=== PATIENT | female | born 1945 | race American Indian/Alaskan Native ===

== ENCOUNTER 2018-11-22 01:08 | Emergency (ER) | payer MEDICARE, OTHER ==
--- NOTE | 2018-11-22 01:10 | EDM.PDOC ---
ED HPI GENERAL MEDICAL PROBLEM - General Stated Complaint: AMBULANCE Time Seen by Provider: 11/22/18 01:08 Source of Information: Reports: Patient History Limitations: Reports: No Limitations - History of Present Illness INITIAL COMMENTS - FREE TEXT/NARRATIVE: states was going from bathroom to kitchen and tripped over a step hit back of head was dazed with ?LOC. denies N/V/viz problem. EMS found pt sitting in chair. Posterior Head Pain Score (Numeric/FACES): 5 - Related Data Allergies Allergy/AdvReac Type Severity Reaction Status Date / Time amitriptyline Allergy Blisters Verified 11/22/18 01:16 gabapentin Allergy Nausea Verified 11/22/18 01:16 NSAIDS (Non-Steroidal Allergy Rash Verified 11/22/18 01:16 Anti-Inflamma tramadol Allergy Swollen Verified 11/22/18 01:16 Tongue trazodone Allergy Swollen Verified 11/22/18 01:16 Tongue Home Meds: Home Meds ALPRAZolam [Alprazolam] 1 tab PO TID 12/11/14 [History] Acetaminophen [Tylenol] 650 mg PO Q4H PRN 12/11/14 [History] Escitalopram [Lexapro] 20 mg PO DAILY 12/11/14 [History] Insulin Detemir [Levemir] 20 units SQ BID 12/11/14 [History] Ipratropium/Albuterol Sulfate [Iprat-Albut 0.5-3(2.5) MG/3 ML] 1 vial INH Q4H [History] Lisinopril 1 tab PO DAILY 12/11/14 [History] Mometasone/Formoterol [Dulera 200 MCG/5 MCG] 2 puff INH BID 12/11/14 [History] Simvastatin [Zocor] 40 mg PO BEDTIME 12/11/14 [History] Tiotropium [place] [Spiriva Respimat] 1 cap INH DAILY 12/11/14 [History] metFORMIN HCl [Metformin HCl] 1 tab PO BID 12/11/14 [History] oxyCODONE HCl/Acetaminophen [Percocet 7.5-325 MG] 1 tab PO Q4H 12/11/14 [History ] Past Medical History Other Respiratory History: uses 2 liters of oxygen at home at all times, schuduled Duo-nebs Other Genitourinary History: was in renal failure in December of 2013, had dialysis times 3" and it turned me around" Other Neuro History: 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 ED EXAM, HEAD INJURY - Physical Exam Exam: See Below Exam Limited By: No Limitations General Appearance: Alert, WD/WN, Mild Distress, Other (headache) Head: Scalp Lacerations. No: Valles's Sign, Raccoon Eyes Nexus Criteria: No: Posterior, Midline Cervical Tenderness, Evidence of Intoxication, Altered Level of Consciousness, Focal Neurological Deficit, Painful Distraction Injuries Eyes: Bilateral Eye: PERRL (pupils ess ER @ 4mm) Ears: Hearing Grossly Normal Throat/Mouth: Normal Voice, No Airway Compromise Neck: Non-Tender, Full Range of Motion Respiratory: No Respiratory Distress Cardiovascular: Regular Rate, Rhythm GI/Abdominal Exam: Soft, Non-Tender Neurologic: No Motor/Sensory Deficits, Alert, Normal Mood/Affect, Oriented x 3 Skin: Normal Color, Warm/Dry - Daren Coma Score Best Eye Response ([place]): (4) Open Spontaneously Best Verbal Response (Daren): (5) Oriented Best Motor Response ([place]): (6) Obeys Commands Daren Total: 15 ED LACERATION/WOUND & SULLY PROC - Laceration/Wound Repair Occipital Lac/wound length in cm: 6 (occiput) Appearance: Subcutaneous, Irregular, Clean Anesthetic Type: Local Local Anesthesia - Lidocaine (Xylocaine): 1% with EPI Local Anesthetic Volume: 5cc Skin Prep: Chlorhexidine ([place]) Saline irrigation (cc's): 20 Exploration/Debridement/Repair: Wound Explored, In a Bloodless Field, No Foreign Material Found Closed with: Sutures Suture Size: 3-0 Suture Type: Nylon, Interrupted Sterile Dressing Applied: None Tetanus Status Addressed: Yes Complications: No Course - Vital Signs Last Recorded V/S: Last Vital Signs Temp 36.6 C 11/22/18 01:12 Pulse 93 11/22/18 01:12 Resp 20 11/22/18 01:12 BP 133/78 11/22/18 01:12 Pulse Ox 93 L 11/22/18 01:12 - Orders/Labs/Meds Orders: Active Orders 24 hr Category Date Time Status Cervical Spine wo Cont [CT] Urgent Exams 11/22/18 01:33 Ordered Head wo Cont [CT] Urgent Exams 11/22/18 01:33 Ordered Meds: Medications Discontinued Medications Generic Name Dose Route Start Last Admin Trade Name Mariana PRN Reason Stop Dose Admin Acetaminophen 500 mg 11/22/18 01:37 11/22/18 01:42 Tylenol Extra Strength PO 11/22/18 01:38 500 mg ONETIME ONE Administration Lidocaine/Epinephrine 20 ml 11/22/18 01:07 11/22/18 01:26 Xylocaine 1% With Epinephrine 1:100,000 INJECT 11/22/18 01:08 20 ml ONETIME ONE Administration - Re-Assessments/Exams Free Text/Narrative Re-Assessment/Exam: 11/22/18 02:26 results discussed with pt who is feeling fine Departure - Departure Time of Disposition: 02:27 Disposition: Home, Self-Care 01 Condition: Good Clinical Impression: Occipital scalp laceration Qualifiers: Encounter type: initial encounter Qualified Code(s): S01.01XA - Laceration without foreign body of scalp, initial encounter Concussion Qualifiers: Encounter type: initial encounter Loss of consciousness presence/duration: without LOC Qualified Code(s): S06.0X0A - Concussion without loss of consciousness, initial encounter - Discharge Information Instructions: Laceration Care, Adult, [id number] Forms: ED Department Discharge Additional Instructions: 1) keep wound clean and dry 2) may shower but avoid combing 3) suture removal 10 days 4) take tyelnol as needed 5) recheck as needed - My Orders Last 24 Hours: My Active Orders 11/22/18 01:33 Cervical Spine wo Cont [CT] Urgent Head wo Cont [CT] Urgent - Assessment/Plan Last 24 Hours: My Active Orders 11/22/18 01:33 Cervical Spine wo Cont [CT] Urgent Head wo Cont [CT] Urgent
[2018-11-22 01:16] VITALS: BP 133/78
[2018-11-22] MEDS: Lidocaine 1% with EPINEPHrine 1:100,000 20 ML MDV INJECT ONE (01:26)
[2018-11-22] MEDS: Acetaminophen 500 MG Tab PO ONE (01:42)
== END 2018-11-22 02:38 | disposition home or self-care (01) ==
LOC: DL.ED 01:08
DX: S01.01XA Laceration without foreign body of scalp, initial encounter (principal); Z88.8 Allergy status to other drugs, medicaments and biological substances; Z88.6 Allergy status to analgesic agent; W01.198A Fall on same level from slipping, tripping and stumbling with subsequent striking against other object, initial encounter
CPT/HCPCS: 12002; 70450; 72125; 99283; 99284; A9270; 12001